=== PATIENT | male | born 1970 | race Caucasian/White ===

== ENCOUNTER 2019-05-27 15:51 | Emergency (ER) | payer OTHER ==
[~2019-05-27] VITALS: Ht 180.3 cm; Wt 106.6 kg
[~2019-05-27 15:51] MED LIST: ALPRAZOLAM 0.0.25 M1 PO; LISINOPRIL10 MG PO; PREDNISONE 20 M20 M1 PO; PROTONIX40 M1 PO; VYTORIN 10-101 EACH PO
[2019-05-27] MEDS ORDERED: HTN MED (16:01)
[2019-05-27] MEDS ORDERED: FLUOCINOLONE AC15 G1 TOP (16:34)
[2019-05-27] MEDS ORDERED: KEFLEX500 M1 PO (16:34)
[2019-05-27 16:40] VITALS: BP 158/97
== END 2019-05-27 16:41 | disposition home or self-care (01) ==
LOC: M.ERS 15:51
DX: L30.9 Dermatitis, unspecified (principal); F41.9 Anxiety disorder, unspecified; I10 Essential (primary) hypertension; E78.00 Pure hypercholesterolemia, unspecified; K21.9 Gastro-esophageal reflux disease without esophagitis; Z88.5 Allergy status to narcotic agent

== ENCOUNTER 2020-07-14 20:29 | Emergency (ER) | payer OTHER ==
[~2020-07-14] VITALS: Ht 180.3 cm; Wt 111.1 kg
[~2020-07-14 20:29] MED LIST changes: +FLUOCINOLONE AC15 G1 TOP; +HTN MED; +KEFLEX500 M1 PO
[2020-07-14] MEDS ORDERED: CRESTOR40 MG PO (20:40)
[2020-07-14] MEDS ORDERED: HYDROCHLOROTHIA25 M2 PO (20:40)
[2020-07-14] MEDS ORDERED: LISINOPRIL10 MG PO (20:41)
[2020-07-14 21:12] LABS: ABSOLUTE BASOPHILS 0.1 thou/uL (0.0-0.2); ABSOLUTE EOSINOPHILS 0.2 thou/uL (0.0-0.7); ABSOLUTE LYMPHOCYTES 3.1 thou/uL (0.8-5.3); ABSOLUTE MONOCYTES 0.8 thou/uL (0.0-1.2); ABSOLUTE NEUTROPHILS 5.3 thou/uL (1.6-8.1); BASOPHILS 0.7 %; EOSINOPHILS 2.5 %; HEMATOCRIT 39.5 % (42.0-52.0); HEMOGLOBIN 13.3 gm/dL (14.0-18.0); LYMPHOCYTES 32.2 %; MCH 29.2 pg (26.0-34.0); MCHC 33.5 g/dL (28.0-37.0); MONOCYTES 8.7 %; MPV 7.3 fl. (7.2-11.1); NUCLEATED RBCS 0 /100WBC; PLATELET COUNT* 226 thou/uL (150-400); POLYS 55.9 %; RBC 4.54 mil/uL (4.50-6.00); RDW-CV 13.6 % (10.5-14.5); WBC 9.5 thou/uL (4.0-11.0)
[2020-07-14 21:24] LABS: PROTIME 10.5 Seconds (9.20-11.50)
[2020-07-14 21:36] LABS: CALCIUM 9.1 mg/dL (8.5-10.1); POTASSIUM 3.6 mmol/L (3.5-5.1)
[2020-07-14 21:46] LABS: ALBUMIN 3.9 g/dL (3.4-5.0); MAGNESIUM 2.1 mg/dL (1.8-2.4); TOTAL BILIRUBIN 0.1 mg/dL (<0.1-1.0); TOTAL PROTEIN 7.2 g/dL (6.4-8.2)
[2020-07-14 22:45] VITALS: BP 121/79
--- NOTE | 2020-07-15 12:50 | EKG ---
[place] [address] ELECTROCARDIOGRAM REPORT Name: JENNIE JOHNSON Room: [facility]#: [id number] Admission: 07/14/20 Attend Phys: Discharge: 07/14/20 Date of : 72 Date of Service: 07/14/202033 Report #: [id number] THIS REPORT FOR: //name// [facility] ED Test Date: 2020-07-14 Test Time: 20:34:23 Pat Name: JENNIE JOHNSON Department: Room: Gender: [employer] Officer: [place] : 1970 Requested By: Charlene Winchester Order Number: [id number] MD: Alejandro Schofield Measurements Intervals [place] Rate: 84 P: 48 ND: 153 QRS: 29 QRSD: 101 T: 9 QT: 360 QTc: 426 Interpretive Statements Sinus rhythm Compared to ECG 05/31/2017 12:12:10 T-wave abnormality no longer present Electronically Signed On 07-15-2020 12:50:31 PHOTO MASK PROCESSOR by Alejandro Schofield [email or web address] <ELECTRONICALLY SIGNED> By: Alejandro Schofield MD, [facility] 07/15/20 [phone] 33 Alejandro Schofield MD, FAC /EPI
== END 2020-07-14 22:46 | disposition home or self-care (01) ==
LOC: M.ERS 20:29
PROVIDERS: Emergency Medicine
DX: I10 Essential (primary) hypertension (principal); Z88.5 Allergy status to narcotic agent; K21.9 Gastro-esophageal reflux disease without esophagitis; E78.00 Pure hypercholesterolemia, unspecified

== ENCOUNTER 2020-10-04 03:13 | Emergency (ER) | payer OTHER ==
[~2020-10-04] VITALS: Ht 180.3 cm; Wt 111.1 kg
--- NOTE | ~2020-10-04 | EMS ---
[address] [place] [address] EMS Patient Care Report Name: JENNIE JOHNSON [id number] Admission: 10/04/20 Attend Phys: Discharge: 10/04/20 Date of : 72 Report #: [id number] THIS REPORT FOR: //name// Report Transmitted: 10/04/2020 07:02 EMS Care Summary [facility] [employer] Incident [id number] @ 10/04/2020 02:16 Incident Location [address] [place] [address] Patient JENNIE JOHNSON Male, 49 Years 1970 Patient Address [address] [place] [address] Patient History Hypertension (HTN),Hyperlipidemia,Gastro-Esophageal Reflux Disease (GERD), Patient Allergies Vicodin, Patient Medications Protonix, Lisinopril, Crestor, Chief Complaint DIZZINESS Disposition Transported No Lights/[place] Reason Sick Person Transported To [facility] Narrative Med 1 was dispatched for a [age] year old male c/o dizziness, nausea and vomiting for approximately ten minutes before calling EMS. Upon arrival, the patient was lying on the living room floor. Patient was AOx3, skin was pale, cool and clammy, he had a strong, regular bilateral radial pulses. Patient [address] [place] [address] EMS Patient Care Report Name: JENNIE JOHNSON Room: [facility]#: [id number] Admission: 10/04/20 Attend Phys: Discharge: 10/04/20 Date of : 72 Report #: [id number] reports he woke up feeling dizzy, lightheaded and nauseated and crawled into the living room and called 911. Patient was given 4 mg of Zofran IM in the house because he wouldn't sit still to start an IV. Patient vomited up some water that he had drank prior to our arrival. The stretcher would not fit threw the door of his older home so patient stated." I can crawl to the stretcher." Patient crawled to the stretcher that was outside the back door on the deck and secured via the seatbelts and moved to the ambulance without incident. In the ambulance, patient's vitals were obtained and patient was placed on the radiographer cardiac catheterization. A 12 lead EKG was obtained it shown NSR. Saline lock was established in the patient's left AC with a 20 GA IV catheter. Blood glucose was obtained with a result of 127. Med 1 went enroute to [facility]. Patient rested comfortable and c/o sensitivity to the lights. A towel was placed over the patient's eyes and he stated," That helps alot." Patient was still c/o feeling nauseated and was given an additional 4 mg of Ondanestron via IV. Hospital report was given via radio with no questions or orders requested or given. Med 1 arrived at the hospital. Patient was moved into the ER via stretcher without incident to room 4. Patient care was transferred to the ER staff. Med 1 returned back in service. [id number] [place] Initial Vitals @02:51P: 77,SpO2: 93, @03:01P: 70, @02:56P: 87,R: 20,BP: 138/78,GCS: 15,SpO2: 98,Revised Trauma: 12, @02:42 @02:28BP: 145/86, @02:41P: 87, @02:46P: 81,R: 20,BP: 144/76,GCS: 15,SpO2: 95,Revised Trauma: 12, @03:06P: 77,R: 18,GCS: 15,SpO2: 98, @03:08P: 71,R: 18,BP: 119/75,GCS: 15,SpO2: 99,Revised Trauma: 12, Assessments @03:02MENTAL:No Abnormalities,SKIN:No Abnormalities,HEENT:Head/Face: No Abnormalities,Eyes: No Abnormalities,Neck/Airway: No Abnormalities,LUNG SOUNDS:General: No Abnormalities,Left Upper: No Abnormalities,Right Upper: No Abnormalities,Left Lower: No Abnormalities,Right Lower: No Abnormalities,ABDOMEN:General: No Abnormalities,Left Upper: No Abnormalities,Right Upper: No Abnormalities,Left Lower: No Abnormalities,Right Lower: No Abnormalities,PELVIS//GI:EXTREMITIES:Left Arm: No Abnormalities,Right Arm: No Abnormalities,Left Leg: No Abnormalities,Right Leg: [place] [address] EMS Patient Care Report Name: JENNIE JOHNSON Room: [facility]#: [id number] Admission: 10/04/20 Attend Phys: Discharge: 10/04/20 Date of : 72 Report #: [id number] No Abnormalities,PULSE:NEURO:No Abnormalities, Impression Dizziness Procedures @02:30Ondansetron - 4 Milligrams (mg) - Intramuscular (IM)Response: Unchanged@02:50Ondansetron - 50 Milligrams (mg) - Intramuscular (IM)Response: Improved@02:44Normal Saline (.9% NaCl) 10cc (20 ga) Site: Antecubital-LeftResponse: UnchangedSucceeded@02:4212-Lead ECG Timeline 02:16,Call Received 02:16,Dispatched 02:17,En Route 02:23,On Scene 02:24,At Patient 02:28,BP: 145/86 M,PULSE: ,RR: R,SPO2: Ox,ETCO2: ,BG: ,PAIN: ,GCS: , 02:30,Ondansetron - 4 Milligrams (mg) - Intramuscular (IM),Response: Unchanged 02:41,BP: / M,PULSE: 87,RR: R,SPO2: Ox,ETCO2: ,BG: ,PAIN: ,GCS: , 02:42,12-Lead ECG, 02:42,BP: / M,PULSE: ,RR: R,SPO2: Ox,ETCO2: ,BG: ,PAIN: ,GCS: , 02:44,Normal Saline (.9% NaCl) 10cc 20 ga Site: Antecubital-Left,Response: UnchangedSucceeded, 02:45,Depart Scene 02:46,BP: 144/76 M,PULSE: 81,RR: 20 R,SPO2: 95 Ox,ETCO2: ,BG: ,PAIN: ,GCS: 15, 02:50,Ondansetron - 50 Milligrams (mg) - Intramuscular (IM),Response: Improved 02:51,BP: / M,PULSE: 77,RR: R,SPO2: 93 Ox,ETCO2: ,BG: ,PAIN: ,GCS: , 02:56,BP: 138/78 M,PULSE: 87,RR: 20 R,SPO2: 98 Ox,ETCO2: ,BG: ,PAIN: ,GCS: 15, 03:01,BP: / M,PULSE: 70,RR: R,SPO2: Ox,ETCO2: ,BG: ,PAIN: ,GCS: , 03:06,BP: / M,PULSE: 77,RR: 18 R,SPO2: 98 Ox,ETCO2: ,BG: ,PAIN: ,GCS: 15, 03:08,BP: 119/75 M,PULSE: 71,RR: 18 R,SPO2: 99 Ox,ETCO2: ,BG: ,PAIN: ,GCS: 15, 03:10,At Destination 03:38,Call Closed 03:38,In District Disclaimer v1.1 Copyright 2020 [employer] This EMS Care Summary contains data elements from the applicable legal record (which may be displayed differently). It is designed to provide pertinent information for the following purposes: continuity of care, clinical quality, and state data reporting. The complete legal record is available to ED staff and administrators of the receiving hospital in [employer]'s Patient Tracker. All data is provided "as is."
[~2020-10-04 03:13] MED LIST changes: +CRESTOR40 MG PO; +HYDROCHLOROTHIA25 M2 PO
[2020-10-04] MEDS ORDERED: MOTION RELIEF25 MG PO (05:37)
[2020-10-04] MEDS ORDERED: ZOFRAN ODT4 MG PO (05:37)
[2020-10-04] MEDS ORDERED: PREDNISONE50 MG PO (05:51)
[2020-10-04] MEDS ORDERED: DIAZEPAM 5 MG5 M1 PO (05:51)
[2020-10-04 05:58] VITALS: BP 147/96
== END 2020-10-04 05:59 | disposition home or self-care (01) ==
LOC: M.ERS 03:13
DX: R42 Dizziness and giddiness (principal); I10 Essential (primary) hypertension; E78.00 Pure hypercholesterolemia, unspecified; K21.9 Gastro-esophageal reflux disease without esophagitis; Z88.5 Allergy status to narcotic agent